=== PATIENT | female | born 1935 | race Caucasian/White ===

== ENCOUNTER 2017-04-21 12:39 | Emergency (ER) | payer MEDICARE, OTHER ==
[2017-04-21 13:11] VITALS: BP 128/58
[2017-04-21] MEDS ORDERED: Albuterol 2.5 MG/3 ML NEB.SOL* (0.083%) INH ONE (13:34)
[2017-04-21] MEDS ORDERED: Ipratropium 0.5MG/2.5ML NEB* 0.5 MG/2.5 ML NEB.SOLN INH ONE (13:34)
--- NOTE | 2017-04-21 13:34 | UC ---
Respiratory Complaint HPI - HPI Summary HPI Summary: 81 YO FEMALE WITH WHEEZING/COUGH AND AGUILAR X 4-5 DAYS PRODUCTIVE COUGH HAS FELT FEVERISH AND HAD CHILLS NO CP NO N/V - History of Current Complaint Chief Complaint: UCRespiratory Stated Complaint: RESP COMPLAINT Time Seen by Provider: 04/21/17 12:59 Hx Obtained From: Patient Onset/Duration: Sudden Onset, Lasting Days Timing: Constant Severity Initially: Mild Severity Currently: Moderate Pain Intensity: 0 Pain Scale Used: 0-10 Numeric Character: Cough: Productive Aggravating Factors: Exertion Alleviating Factors: Nothing Associated Signs And Symptoms: Positive: Dyspnea, Fever - mark, Chills, Wheezing - Allergies/Home Medications Allergies/Adverse Reactions: Allergies Allergy/AdvReac Type Severity Reaction Status Date / Time No Known Allergies Allergy Verified 04/21/17 12:52 Home Medications: Home Medications Acetaminophen [Acetaminophen Extra Stren] 1 tab PO Q6HR PRN 04/21/17 [History Confirmed 04/21/17] Aspirin [Aspirin 81 MG TAB] 1 tab PO DAILY 04/21/17 [History Confirmed 04/21/17] Atenolol [Tenormin 25 MG] 50 mg PO DAILY 04/21/17 [History Confirmed 04/21/17] Atorvastatin* [Lipitor 40 MG*] 1 tab PO DAILY 04/21/17 [History Confirmed ] Calcitriol [Rocaltrol] 1 tab PO DAILY 04/21/17 [History Confirmed 04/21/17] Febuxostat(NF) [Uloric(NF)] 1 tab PO DAILY 04/21/17 [History Confirmed 04/21/17] Olmesartan Medoxomil [Benicar] 1 tab PO DAILY 04/21/17 [History Confirmed ] Omeprazole 20 mg PO DAILY 04/21/17 [History Confirmed 04/21/17] PMH/Surg Hx/FS Hx/Imm Hx Cardiovascular History: Cardiac Disease, Hypertension Respiratory History: Asthma, Bronchitis, Pneumonia - Surgical History Surgical History: Yes Surgery Procedure, Year, and Place: Hysterectomy; CABG - Family History Known Family History: Positive: Cardiac Disease, Hypertension - Social History Alcohol Use: Rare Substance Use Type: None Smoking Status (MU): Never Smoked Tobacco Review of Systems Constitutional: Fever, Chills, Fatigue Skin: Negative Eyes: Negative ENT: Negative Respiratory: Shortness Of Breath, Cough Cardiovascular: Negative Gastrointestinal: Negative Genitourinary: Negative Motor: Negative Neurovascular: Negative Musculoskeletal: Negative Neurological: Negative Psychological: Negative All Other Systems Reviewed And Are Negative: Yes Physical Exam Triage Information Reviewed: Yes Appearance: Well-Appearing, No Pain Distress, Well-Nourished Vital Signs: Initial Vital Signs Temp 98.7 F 04/21/17 12:47 Pulse 95 04/21/17 12:47 Resp 22 04/21/17 12:47 Pulse Ox 94 04/21/17 12:47 Eyes: Positive: Conjunctiva Clear ENT: Positive: Hearing grossly normal. Negative: Nasal congestion, Nasal drainage, Trismus, Muffled/hoarse voice Neck: Positive: Supple, Nontender Respiratory: Positive: No respiratory distress, No accessory muscle use, Wheezing Cardiovascular: Positive: RRR. Negative: No Murmur Musculoskeletal: Positive: ROM Intact Neurological: Positive: Alert Psychological Exam: Normal Skin Exam: Normal UC Diagnostic Evaluation - Laboratory O2 Sat by Pulse Oximetry: 94 - low normal Re-Evaluation - Re-Evaluation First Eval Re-Evaluation Time: 14:20 Change: Improved - feels improved after neb, better air movement and decreased wheezing Respiratory Course/Dx - Differential Dx/Diagnosis Provider Diagnoses: acute bronchitis with bronchitis Discharge - Discharge Plan Condition: Stable Disposition: HOME Prescriptions: Amoxicillin (*) [Amoxicillin 875 MG (*)] 875 mg PO BID #20 tab Patient Education Materials: Acute Bronchitis (ED), Bronchospasm (ED) Referrals: Dilan Hernández MD [Primary Care Provider] - 2 Days Additional Instructions: recheck in 2-3 day if not not better to er for new or worsening symptoms
--- NOTE | 2017-04-21 13:49 | RAD ---
HISTORY: Reason, wheezing, dyspnea COMPARISONS: April 29, 2011 VIEWS: 2: Frontal dual-energy and lateral views of the chest. FINDINGS: CARDIOMEDIASTINAL SILHOUETTE: The cardiomediastinal silhouette is normal. FEDERICO: The federico are normal. PLEURA: The costophrenic angles are sharp. No pleural abnormalities are noted. LUNG PARENCHYMA: There is mild diffuse pattern of reticular opacification. This is chronic appearing. ABDOMEN: The upper abdomen is clear. There is no subphrenic gas. BONES AND SOFT TISSUES: The patient is status post median sternotomy. OTHER: None. IMPRESSION: MILD CHRONIC INTERSTITIAL CHANGES.
[2017-04-21] MEDS ORDERED: Albuterol HFA INHALER* 8 gm MDI INH ONE (14:18)
== END 2017-04-21 14:35 | disposition home or self-care (01) ==
LOC: UCEAST 12:39
DX: J20.9 Acute bronchitis, unspecified (principal); I10 Essential (primary) hypertension; Z95.1 Presence of aortocoronary bypass graft; Z79.82 Long term (current) use of aspirin; J45.909 Unspecified asthma, uncomplicated; I51.9 Heart disease, unspecified
CPT/HCPCS: 71020; 99211; 99212; A9270-GY; G0463; J7644

== ENCOUNTER 2019-06-07 14:06 | Emergency (ER) | payer MEDICARE, OTHER ==
[2019-06-07] MEDS ORDERED: Aspirin 81 mg CHEW TAB* 81 MG TAB.CHEW PO ONE (14:17)
[2019-06-07] MEDS ORDERED: Aspirin 81 mg CHEW TAB* 81 MG TAB.CHEW ONE (14:21)
[2019-06-07 14:24] VITALS: BP 136/54
--- NOTE | 2019-06-07 14:27 | UC ---
General HPI - HPI Summary HPI Summary: Pleasant 83 yo female c/o 2 days shortness of breath. Can't seem to pull in the air enough. Yesterday and this am had chest pressure (not pain, pressure), which is no longer present, but the dyspnea remains. no recent fever / chills / illness. No GI sx reported. No loc / syncope. No focal weakness. Takes baby asa daily,in the evening, most recently last evening. + Hx "heart attack" several years ago,+ hx cardiac bypass surgery apprx 20 yrs ago. No vomit. "Pre-diabetic. Brought to [facility] via a friend. 1st person ros limited d/t dyspnea. No focal weakness. + increased BLE edema. Last po lemonade apprxo 2 hrs ago. - History of Current Complaint Stated Complaint: CHEST PAIN Time Seen by Provider: 06/07/19 14:07 Hx Obtained From: Patient - Allergy/Home Medications Allergies/Adverse Reactions: Allergies Allergy/AdvReac Type Severity Reaction Status Date / Time No Known Allergies Allergy Verified 06/07/19 14:19 Home Medications: Home Medications Rosuvastatin (NF) [Crestor (NF)] 40 mg PO DAILY 06/07/19 [History Confirmed ] PMH/Surg Hx/FS Hx/Imm Hx Previously Healthy: No - see hpi - Surgical History Surgical History: Yes Surgery Procedure, Year, and Place: Hysterectomy; CABG - Family History Known Family History: Positive: Cardiac Disease, Hypertension - Social History Alcohol Use: Rare Substance Use Type: None Smoking Status (MU): Never Smoked Tobacco Review of Systems All Other Systems Reviewed And Are Negative: Yes Constitutional: Positive: Negative Skin: Positive: Negative Eyes: Positive: Negative ENT: Positive: Negative Respiratory: Positive: Other - see hpi Cardiovascular: Positive: Other - see hpi Gastrointestinal: Positive: Negative Genitourinary: Positive: Negative Motor: Positive: Other - see hpi Neurovascular: Positive: Other - see hpi Musculoskeletal: Positive: Edema Neurological: Positive: Negative Psychological: Positive: Negative Is Patient Immunocompromised?: No Physical Exam Triage Information Reviewed: Yes Appearance: Well-Nourished, Ill-Appearing Vital Signs Reviewed: Yes Eye Exam: Normal - grossly nonfocal ENT: Positive: Other - lips a little dry, but skin turgor good Neck exam: Other - + djd evidence. jvd equiv (d/t position) Respiratory Exam: Other - BS equal. Increased rate, dec BL bs Cardiovascular Exam: Other - HR regular, with extra beats + murmur apprx 01/25 Abdominal Exam: Normal Abdomen Description: Positive: Nontender Musculoskeletal Exam: Other Musculoskeletal: Positive: Edema @ - BLE + pitting edema + evidence of venous insuff, lymphedema. Distal warm touch. Neurological Exam: Normal - grossly nonfocal Psychological Exam: Normal - conversing appropriately but dyspneic Skin Exam: Other - nondiaphoretic. no visible or reported rash Course/Dx - Course Course Of Treatment: SR at 73 bpm with pac. Last ekg 2011. EMS notified, understandably disappointed but expresses understanding and agreement. Denies current pain or pressure. Sign sx is dyspnea. O2, Saline lock, asa 342mg. FS glucosse ordered but EMS departing. Will check en route. D/w Dr. Modi apprx 14:20. - Diagnoses Provider Diagnosis: Shortness of breath Discharge - Sign-Out/Discharge Documenting (check all that apply): Patient Departure All imaging exams completed and their final reports reviewed: No Studies - Discharge Plan Condition: Guarded Disposition: ADMITTED TO [facility] Patient Education Materials: Shortness of Breath (ED) Referrals: Yamileth Cabrera MD [Primary Care Provider] - - Billing Disposition and Condition Condition: GUARDED Disposition: Admitted to [facility]
== END 2019-06-07 14:35 | disposition short-term general hospital (02) ==
LOC: UCEAST 14:06
DX: R06.02 Shortness of breath (principal); Z95.1 Presence of aortocoronary bypass graft
CPT/HCPCS: 93005; 99213; A9270-GY; G0463

== ENCOUNTER 2019-06-07 14:57 | Observation (INO) | payer MEDICARE, OTHER ==
--- NOTE | 2019-06-07 15:06 | ED ---
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 She states that she began having some trouble breathing yesterday morning while eating breakfast. At 0300 this morning she was woken up from sleep after feeling a heaviness in her chest with some SOB and she couldn t fall back asleep. She states that the CP has now resolved and rates her current pain severity a 0/10. Symptoms are aggravated by exertion. Symptoms were alleviated by O2 administered in the EMS. She has Hx of Asthma. - History of Current Complaint Hx Obtained From: Patient Onset/Duration: Started Days Ago, Resolved Timing: Intermittent, Lasting Days Initial Severity: Moderate Current Severity: None Pain Scale Used: 0-10 Numeric Chest Pain Location: Diffuse Character: Heaviness Aggravating Factor(s): Exertion Alleviating Factor(s): Oxygen Associated Signs and Symptoms: Positive: Chest Pain, Shortness of Breath - Allergy/Home Medications Allergies/Adverse Reactions: Allergies Allergy/AdvReac Type Severity Reaction Status Date / Time No Known Allergies Allergy Verified 06/07/19 15:06 Home Medications: Home Medications Olmesartan (NF) [Benicar (NF)] 5 mg PO DAILY 06/07/19 [History Confirmed ] PMH/Surg Hx/FS Hx/Imm Hx Endocrine/Hematology History: Reports: Hx Diabetes - Pre-diatbetic Cardiovascular History: Denies: Hx Congestive Heart Failure, Hx Hypertension, Hx Pacemaker/ICD, Other Cardiovascular Problems/Disorders Respiratory History: Reports: Hx Asthma Denies: Hx Chronic Obstructive Pulmonary Disease (COPD), Other Respiratory Problems/Disorders Musculoskeletal History: Denies: Hx Rheumatoid Arthritis, Hx Osteoporosis - Cancer History Hx Chemotherapy: No Hx Radiation Therapy: Yes - Surgical History Surgery Procedure, Year, and Place: Hysterectomy; CABG - Family History Known Family History: Positive: Cardiac Disease, Hypertension - Social History Alcohol Use: Rare Substance Use Type: Reports: None Smoking Status (MU): Never Smoked Tobacco Review of Systems Positive: Chest Pain Positive: Shortness Of Breath All Other Systems Reviewed And Are Negative: Yes Physical Exam - Summary Physical Exam Summary: Appearance: The patient is well-nourished in no acute distress and in no acute pain. Skin: The skin is warm and dry and skin color reflects adequate perfusion. HEENT: The head is normocephalic and atraumatic. The pupils are equal and reactive. The conjunctivae are clear and without drainage. Nares are patent and without drainage. Mouth reveals moist mucous membranes and the throat is without erythema and exudate. The external ears are intact. The ear canals are patent and without drainage. The tympanic membranes are intact. Neck: The neck is supple with full range of motion and non-tender. There are no carotid bruits. There is no neck vein distension. Respiratory: Chest is non-tender. Rales in the bases. Breath sounds are symmetrical and equal. Cardiovascular: Heart is regular rate and rhythm. Systolic ejection murmur. There is mild pitting edema. No pulses are symmetrical and equal. Abdomen: The abdomen is soft and non-tender. There are normal bowel sounds heard in all four quadrants and there is no organomegaly palpated. Musculoskeletal: There is no back tenderness noted. Extremities are non-tender with full range of motion. There is good capillary refill. There is mild pitting edema. No calf tenderness elicited. Neurological: Patient is alert and oriented to person, place and time. The patient has symmetrical motor strength in all four extremities. Cranial nerves are grossly intact. Deep tendon reflexes are symmetrical and equal in all four extremities. Psychiatric: The patient has an appropriate affect and does not exhibit any anxiety or depression. Triage Information Reviewed: Yes Vital Signs Reviewed: Yes Diagnostics - Laboratory Result Diagrams: 06/07/19 15:28 06/07/19 15:21 Lab Statement: Any lab studies that have been ordered have been reviewed, and results considered in the medical decision making process. - Radiology CXR Radiology Interpretation Completed By: Radiologist Summary of Radiographic Findings: IMPRESSION: PULMONARY INTERSTITIAL EDEMA. ED Physician has reviewed this report. - EKG 1501 Cardiac Rate: NL - 76 bpm EKG Rhythm: Sinus Rhythm Summary of EKG Findings: Normal sinus rhythm at 76 bpm, normal ST, no ectopy, no STEMI. Chest Pain Course/Dx - Course Course Of Treatment: Ms. Zapata presented with some shortness of breath with exertion for a couple of days. Last night she woke up with shortness of breath and a crushing chest pain. This resolved gradually after she got up and out of bed. She doesn't have any chest pain on arrival, is nontoxic in appearance and has stable vitals. Her chest x-ray revealed congestive heart failure. Clinically she didn't look bad she didn't have JVD lying at 45 and I only heard crackles at the bases. I spoke with Dr. Skelton the hospitalist about admission. - Diagnoses Provider Diagnoses: CHF (congestive heart failure) - Provider Notifications Discussed Care Of Patient With: Janee Skelton - Dr. Skelton will admit pt to [facility]. Time Discussed With Above Provider: 16:00 Instructed by Provider To: Admit As Inpatient - Critical Care Time Critical Care Time: 30-74 min - 30 minutes Discharge - Sign-Out/Discharge Documenting (check all that apply): Patient Departure - admit Patient Received Moderate/Deep Sedation with Procedure: No - Discharge Plan Condition: Stable Disposition: ADMITTED TO [facility] - Billing Disposition and Condition Condition: STABLE Disposition: Admitted to [facility] - Attestation Statements Document Initiated by Navya: Yes Documenting Scribe: Phong Hill Provider For Whom Sohaile is Documenting (Include Credential): Bryn Modi MD Scribe Attestation: I, Phong Hill, scribed for Bryn Modi MD on 06/07/19 at 2034. Scribe Documentation Reviewed: Yes Provider Attestation: The documentation as recorded by the Phong vivar accurately reflects the service I personally performed and the decisions made by me, Brny Modi MD Status of Scribe Document: Viewed
[2019-06-07 15:35] LABS: ABS Basophils 0.1 10^3/ul (0-0.2); ABS Eosinophils 0.2 10^3/ul (0-0.6); ABS Lymphocytes 1.1 10^3/ul (1.0-4.8); ABS Monocytes 0.8 10^3/ul (0-0.8); ABS Neutrophils 3.5 10^3/ul (1.5-7.7); Eosinophil % 3.3 %; Hematocrit 30 % (35-47); Hemoglobin 9.5 g/dL (12.0-16.0); Lymphocyte % 20.1 %; Mean Corpuscular HGB Conc 32 g/dL (31-36); Mean Corpuscular Hemoglobin 29 pg (27-31); Mean Corpuscular Volume 91 fL (80-97); Mean Platelet Volume 9.4 fL (7.4-10.4); Platelet Count 166 10^3/uL (150-450); Red Blood Count 3.28 10^6 /uL (3.70-4.87); Red Cell Distribution Width 14 % (10-15); White Blood Count 5.7 10^3/uL (3.5-10.8)
[2019-06-07 15:40] LABS: INR 1.04 (0.82-1.09)
[2019-06-07 15:52] LABS: Albumin 3.6 g/dL (3.2-5.2); Albumin/Globulin Ratio 1.2 (1-3); BUN/Creatinine Ratio 18.1 (8-20); C Reactive Protein 1.26 mg/L (<8.01); Calcium 9.4 mg/dL (8.6-10.3); EGFR African American 28.2 (>60); EGFR Non-African American 23.3 (>60); Globulin 3.1 g/dL (2-4); Potassium 4.5 mmol/L (3.5-5.0); Total Bilirubin 0.3 mg/dL (0.2-1.0); Total Protein 6.7 g/dL (6.4-8.9)
[2019-06-07 15:53] LABS: Troponin I 0.02 ng/mL (<0.04)
[2019-06-07] MEDS ORDERED: Furosemide IV* 10 MG/ML 2 ML VIAL (20 MG) IV SLOW PU ONE (17:19)
--- NOTE | 2019-06-07 21:15 | HP ---
CC: Dr. Cabrera; Dr. Melo; Dr. Sewell. HISTORY AND PHYSICAL: DATE OF ADMISSION: 06/07/19 PRIMARY CARE PROVIDER: Dr. Cabrera. FRETTED INSTRUMENT REPAIRER: Dr. Melo. MILLROOM SUPERVISOR: Dr. Sewell. TIME OF EVALUATION: 5 p.m. CHIEF COMPLAINT: Shortness of breath. HISTORY OF PRESENT ILLNESS: Ms. Zapata is an 83-year-old female with a past medical history of c oronary artery disease, status post CABG in 1992; mild-to- moderate aortic valve stenosis; type 2 abhay betes; GERD; gout; breast CA; status post right lumpectomy; CKD stage 3 to 4; hyperlipidemia; hyperte nsion, who presented to the emergency room with complaints of shortness of breath. The patient states that she was on her usual state of health until 3 to 4 days ago. She states that s he was feeling a little short of breath with exertion. Of note is the fact that she has family membe rs visiting from [place], so she has been eating in different restaurants. In fact, she went to [employer] last night. She states that today around 3 in the morning she woke up with severe shortness of breath and had some chest pressure. She denies chest pain and she states that she sat up, she no ticed some wheezing sounds. She went to the bathroom and was playing on her iPad to keep her mind of f the shortness of breath, but her family convinced her to come to the emergency room for further rosalie luation. The patient was seen by Dr. Melo on 05/08/19 and at that point the plan was to repeat her echocard iogram to evaluate her valvular disease and also to have a stress test. At that point, she was alrea dy complaining of dyspnea on exertion and at that point it had been described as a gradual progressiv e issue. She had no complaints of orthopnea or PND on that visit. A week later, she saw Dr. Sewell and she had submitted a 24-hour urine collection with only 600 mL an d her creatinine had increased to 3, so he advised her to drink up to 64 ounces of fluid a day. Her family has been insisting for her to keep up with the fluid intake and she states that she has drunk more than 40 ounces every day, although she was not able to reach Dr. Sewell's recommendation. She denies fever, chills. She has developed some dry cough, especially in the morning. She states t hat her usual weight is 169 pounds. On her visit to Dr. Melo, her weight was 159 without shoes an d on Dr. Sewell's visit her weight was 163 pounds. She does not check her weight regularly at home. The patient denies using any antiinflammatories. She only takes Tylenol for pain and has not taken a ny recently. PAST MEDICAL HISTORY: 1. Coronary artery disease, status post CABG in 1992. 2. [id number] aortic valve stenosis. 3. Type 2 diabetes, now just diet controlled 4. GERD. 5. History of breast CA, status post right lumpectomy in 2004. 6. Shoulder arthritis. 7. Status post cataract surgery. 8. CKD stage 3 to 4. 9. Hyperlipidemia. 10. Hypertension. 11. Diverticulosis . PAST SURGICAL HISTORY: 1. Status post CABG in 1992. 2. Status post right breast lumpectomy in 2004. 3. Status post hysterectomy secondary to endometriosis. 4. Status post left knee arthroscopy due to torn meniscus. MEDICATION LIST: 1. Aspirin 81 mg p.o. daily. 2. Crestor 40 mg p.o. daily. 3. Olmesartan 5 mg p.o. daily. 4. Uloric 40 mg p.o. Mondays, Wednesdays, Fridays 5. Calcitriol 0.25 mcg p.o. daily. 6. Atenolol 50 mg p.o. daily. ALLERGIES: No known drug allergies. SOCIAL HISTORY: No history of tobacco or drug use. She rarely drinks something alcoholic. 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 Surrogate decision maker is her daughter, Harper Mann, phone number is [phone]. REVIEW OF SYSTEMS: A 14-point review of systems was performed, and all the pertinent negative and po sitive findings are in the HPI. PHYSICAL EXAMINATION GENERAL: The patient is a pleasant elderly lady sitting up in the ED stretcher, in no acute distress , but the head of the bed is quite elevated. VITAL SIGNS: Temperature 98.4, heart rate is 78, respiratory rate is 26, oxygen saturation 96% on ro om air, blood pressure is 148/66. HEENT: Pupils are equal. Moist Mucous membranes. NECK: Her neck is obese and I cannot visualize JVD. CHEST: Breath sounds bilaterally with bibasilar crackles. No wheezing. CVS: Normal S1, S2. Regular rate and rhythm with systolic ejection murmur. ABDOMEN: Obese, soft. Bowel sounds present. EXTREMITIES: The patient has 2+ bilateral lower extremity pitting edema. NEUROLOGIC: She is alert and oriented x3. She is moving all 4 extremities. DIAGNOSTIC STUDIES/LAB DATA: The patient had a CBC that showed a WBC of 5.7, hemoglobin of 9.5, hem atocrit of 30, platelets of 166 with 61% neutrophils. INR is 1.04. Chemistry showed a sodium of 134 , potassium of 4.5, chloride of 106, bicarb of 21, BUN of 37, creatinine of 2.04, glucose of 116, lac tic acid is 1, calcium 9.4. LFTs are normal. Initial troponin 0.02. BNP is 640. Chest x-ray shows pulmonary interstitial edema EKG done on 06/07/19 at 2:13 p.m. shows sinus rhythm at 73 beats per minute with some APCs. There is some ST depressions in V2 and V3. Her EKG was repeated at 3:[address] depressions appeared to be improved. Her last EKG on our system was in 2010 and at that time ST depressions were not pre sent. ASSESSMENT AND PLAN: Ms. Zapata is an 83-year-old female with a past medical history of coronary artery disease, status post coronary artery bypass graft in 1992; hypertension; hyperlipidemia; diet controlled type 2 diabetes; gout; chronic kidney disease stage 3 to 4, who presented to the emergenc y room with complaints of progressive dyspnea on exertion, paroxysmal nocturnal dyspnea and chest pre ssure. 1. Newly diagnosed congestive heart failure. I believe this is in the setting of increased salt and fluid intake due to family visitors and Dr. Sewell's recommendation to increase her fluid intake. The patient will be admitted as observation to the telemetry floor. With her history of aortic stenosis , I am going to give her 20 mg of Lasix and we will monitor her I's and O's and daily weights. She w ill have an echocardiogram, so we can assess her LV function and the degree of her aortic stenosis. 2. Chest pressure, rule out acute coronary syndrome. Dr. Melo was already planning to do a stress test as outpatient. At this point, we are going to the diurese her and optimize and depending on ho w she responds, we may perform the stress test Sunday. We will check serial troponins. We will mariela nue her aspirin, beta abbi. 3. Type 2 diabetes. The patient is just being controlled by diet at this point. Her glucose was 116 in the emergency room. 4. Chronic kidney disease stage 3 to 4. With her increased fluid intake, her creatinine has improve d back down to her baseline of 2.0, but we discussed that at this point her heart is not able to tole rate that amount of salt and fluid. She will be diuresed carefully and we will monitor her renal fun ction. 5. DVT prophylaxis: The patient has a score of 6 on the DVT prophylaxis assessment guide. She will be started on subcutaneous heparin. SCDs are contraindicated in the setting of congestive heart regina lure exacerbation with lower extremity edema. 6. Code status is full. TIME SPENT: Approximately 60 minutes spent with patient and family interview, medical records review , physical examination to admission, more than half of this time was spent [id number] with the bhargavi ent and coordination of care. [id number]/[facility] #: [id number]
[2019-06-07] MEDS: Heparin VIAL(*) 5000 UNITS/ML VIAL (FIVE THOUSAND) SUBCUT SCH (21:16)
[2019-06-08] MEDS: Heparin VIAL(*) 5000 UNITS/ML VIAL (FIVE THOUSAND) SUBCUT SCH ×2 (05:04→12:35)
[2019-06-08] MEDS ORDERED: Calcitriol CAP* 0.25 MCG PO SCH (09:00)
[2019-06-08] MEDS ORDERED: CMC:Rosuvastatin (NF) 20 MG TAB PO SCH (09:00)
[2019-06-08] MEDS ORDERED: Aspirin EC TAB* 81 MG TAB.EC PO SCH (09:00)
[2019-06-08] MEDS ORDERED: Atenolol TAB* 50 MG PO SCH (09:00)
[2019-06-08] MEDS ORDERED: Valsartan TAB* 40 MG PO SCH (09:00)
[2019-06-08] MEDS ORDERED: Furosemide IV* 10 MG/ML 2 ML VIAL (20 MG) IV SLOW PU ONE (09:35)
--- NOTE | 2019-06-08 09:38 | PN ---
Subjective Date of Service: 06/08/19 Objective Active Medications: Aspirin (Aspirin Ec Tab*) 81 mg PO DAILY [facility] Last Admin: 06/08/19 08:27 Dose: 81 mg Atenolol (Tenormin Tab*) 50 mg PO DAILY [facility] Last Admin: 06/08/19 08:29 Dose: 50 mg Calcitriol (Rocaltrol Cap*) 0.25 mcg PO DAILY [facility] Last Admin: 06/08/19 08:27 Dose: 0.25 mcg Febuxostat (Uloric(Nf)) 40 mg PO MoWeFr@1700 [facility] Furosemide (Lasix Iv*) 20 mg IV SLOW PU ONCE ONE Stop: 06/08/19 09:36 Heparin Sodium (Porcine) (Heparin Vial(*)) 5,000 units SUBCUT Q8HR [facility] Last Admin: 06/08/19 05:04 Dose: 5,000 units Rosuvastatin Calcium (Crestor (Nf)) 40 mg PO DAILY [facility] Last Admin: 06/08/19 08:28 Dose: 40 mg Valsartan (Diovan Tab*) 40 mg PO DAILY [facility]; Protocol Last Admin: 06/08/19 08:27 Dose: 40 mg Vital Signs - 8 hr 06/08/19 06/08/19 06/08/19 03:15 08:00 08:06 Temperature 98.3 F 97.7 F Pulse Rate 66 65 Respiratory 16 16 15 Rate Blood Pressure 118/57 118/48 (mmHg) O2 Sat by Pulse 97 96 Oximetry Oxygen Devices in Use Now: None Result Diagrams: 06/07/19 15:28 06/07/19 15:21 Assess/Plan/Problems-Billing Assessment:
[2019-06-08 10:45] LABS: BUN/Creatinine Ratio 18.7 (8-20); Calcium 9.7 mg/dL (8.6-10.3); EGFR African American 26.7 (>60); EGFR Non-African American 22.1 (>60); Potassium 4.6 mmol/L (3.5-5.0)
--- NOTE | 2019-06-08 11:03 | ECHO ---
*[facility]* [place] [address] Fax #: [phone] Transthoracic Echocardiogram Patient: Maisha Zapata : 1935 Study Date: 06/08/2019 Age: 83 Gender: F HR: 76 bpm Height: 61 in /154.9 cm BSA: 1.76 m^2 Weight: 168.6 lb /76.7 kg BMI: 31.9 kg/m^2 *[employer] Tech: * Danette De León RDCS *Referring Physician: * Janee NevarezReading Physician: * Shanel Melo MD Indications: Congestive Heart Failure. History: Coronary artery disease. Aortic stenosis. Functional status: Renal failure. Risk factors: Hypertension. Diabetes mellitus. Dyslipidemia. Breast Cancer, s/p right mastectomy. Labs, prior tests, procedures, and surgery: Coronary artery bypass grafting. Conclusions Summary: - Left ventricle: There is mild concentric hypertrophy. Systolic function is normal. The estimated ejection fraction is 60-65%. Features are consistent with a pseudonormal left ventricular filling pattern, with concomitant abnormal relaxation and increased filling pressure (grade 2 diastolic dysfunction). Doppler parameters are consistent with elevated ventricular end-diastolic filling pressure. - Right ventricle: Systolic function is normal. - Left atrium: The atrium is severely dilated. - Mitral valve: The Mitral valve annulus appears moderate to severely calcified. The leaflets are moderately thickened. The findings are consistent with mild stenosis. There is moderate regurgitation. The mean diastolic gradient is 5.0 mm Hg. The valve area is 1.7 cm^2. - Aortic valve: The findings are consistent with moderate stenosis. There is mild to moderate regurgitation. The peak systolic velocity is 3.2 m/sec. The mean systolic gradient is 22.0 mm Hg. The valve area by the velocity-time integral method is 1.06 cm^2. The regurgitation pressure half-time is 431 ms. - Tricuspid valve: There is mild regurgitation. Estimated pulmonary artery pressure is 38 mm Hg. - Pulmonary arteries: Systolic pressure is mildly to moderately increased. - Prior echocardiogram not available to compare. Study data: Transthoracic echocardiogram. Procedure: Transthoracic echocardiography was performed. Image quality was fair. Complete 2D, spectral Doppler, and color flow Doppler. Location: Bedside. Patient status: Inpatient. Patient room number: 441-2. Rhythm: Normal sinus rhythm with PAC's. Findings Left ventricle: The cavity size is normal. There is mild concentric hypertrophy. Systolic function is normal. The estimated ejection fraction is 60-65%. Wall motion is normal; there are no regional wall motion abnormalities. Features are consistent with a pseudonormal left ventricular filling pattern, with concomitant abnormal relaxation and increased filling pressure (grade 2 diastolic dysfunction). Doppler parameters are consistent with elevated ventricular end-diastolic filling pressure. Right ventricle: The cavity size is mildly to moderately dilated. Systolic function is normal. Systolic pressure is mildly to moderately increased. Ventricular septum: There is septal flattening of the interventricular septum consistent with RV volume or pressure overload. Left atrium: The atrium is severely dilated. Right atrium: The atrium is mildly dilated. Mitral valve: The Mitral valve annulus appears moderate to severely calcified. The leaflets are moderately thickened. The findings are consistent with mild stenosis. There is moderate regurgitation. Aortic valve: The valve is trileaflet. The leaflets are moderately thickened and moderately calcified. Cusp separation is moderately reduced. Valve mobility is restricted, NCC immobile, right coronary cusp and LCC decreased mobility. The findings are consistent with moderate stenosis. There is mild to moderate regurgitation. Tricuspid valve: The leaflets are normal thickness. There is no evidence of stenosis. There is mild regurgitation. Pulmonic valve: The leaflets are normal thickness. There is no evidence of stenosis. There is trace regurgitation. Aorta: Ascending aorta: The ascending aorta is appears normal. The aortic root appears normal. The aortic arch appears normal. Pericardium: A prominent pericardial fat pad is present. There is no significant pericardial effusion. Pulmonary arteries: The main pulmonary artery is normal-sized. Systolic pressure is mildly to moderately increased. Systemic veins: Inferior vena cava: The vessel is normal in size. There is (>= 50%) respiratory change in the IVC dimension. Measurements Left ventricle Value Ref Aortic valve continued Value Ref SAMPSON, LAX 4.8 cm 3.8 - 5.2 Peak grad, S 41.0 mm Hg ----- ESD, LAX (H) 3.8 cm 2.2 - 3.5 LVOT/AV, VTI ratio 0.34 ----- FS, LAX (L) 22 % 27 - 45 FRANCES, VTI 1.06 cm^2 ----- PW, ED, LAX (H) 1.1 cm 0.6 - 0.9 FRANCES, Vmax 1.13 cm^2 ----- FS (L) 22 % 27 - 45 AR peak v 3.02 m/sec ----- PW, ED (H) 1.1 cm 0.6 - 0.9 AR PHT 431 ms ----- E', lat chirag, TDI (L) 5.1 cm/sec >=10.0 AR peak grad 36 mm Hg - ---- E/e', lat chirag, 43 TDI Mitral valve Value Ref E', med chirag, TDI (L) 4.4 cm/sec >=7.0 Peak E 2.2 m/sec - ---- E/e', med chirag, 50 Peak A 0.6 m/sec ---- - TDI Decel time 208 ms ----- E', avg, TDI 4.8 cm/sec PHT 185 ms ---- - E/e', avg, TDI (H) 46 <=14 Mean grad, D 5.0 mm Hg - ---- Peak grad, D 19.4 mm Hg ----- LVOT Value Ref Peak E/A ratio 3.69 ----- Diam, S 2.00 cm MVA, PHT 1.2 cm^2 ----- Area 3.1 cm^2 MVA, LVOT cont 1.7 cm^2 ----- Peak jose, S 1.15 m/sec MR alias velocity 0.37 m/sec ----- VTI, S 27.0 cm MR PISA radius 0.5 cm ----- Peak grad, S 5 mm Hg Max MR v 5.59 m/sec ----- Mean grad, S 2 mm Hg Regurg VTI 177.0 cm ----- SV 86 ml ERO, PISA 0.1 cm^2 ----- SV/bsa 49 ml/m^2 MR vol, PISA 17 ml ----- MR fraction, PISA 17 % ----- Ventricular septum Value Ref IVS, ED (H) 1.1 cm 0.6 - 0.9 Pulmonic valve Value Ref Peak v, S 1.24 m/sec ----- Right ventricle Value Ref Peak grad, S 6.0 mm Hg ----- SAMPSON, LAX 3.6 cm SAMPSON minor ax, A4C (H) 5.1 cm 1.9 - 3.5 Tricuspid valve Value Ref mid TR peak v (H) 3.1 m/sec <=2.8 Pressure, S 41 mm Hg Peak RV-RA grad, S 38 mm Hg ----- Left atrium Value Ref Aortic root Value Ref AP dim, ES (H) 4.90 cm 2.70 - Root diam 2.9 cm <4.0 3.80 ML dim, A4C 4.9 cm Ascending aorta Value Ref SI dim, A4C 6.5 cm AAo AP diam, S 3.2 cm ----- Vol/bsa, ES, 1-p (H) 55 ml/m^2 11 - 40 A4C Decending aorta Value Ref Vol/bsa, ES, A/L (H) 81 ml/m^2 16 - 34 Ebony peak jose 0.82 m/sec ----- Right atrium Value Ref Pulmonary artery Value Ref SI dim, ES 5.3 cm 3.4 - 5.3 Pressure, S 35.0 mm Hg ----- ML dim, ES, A4C 3.9 cm 2.6 - 4.4 SI dim, ES, A4C 5.3 cm 3.4 - 5.3 Inferior vena cava Value Ref Estimated RAP 3 mm Hg Diam 2.1 cm ----- Aortic valve Value Ref Chirag diam, ED 2.1 cm Peak v, S 3.2 m/sec VTI, S 80.0 cm Mean grad, S 22.0 mm Hg Legend: (L) and (H) desire values outside specified reference range. Prepared and electronically signed by Shanel Melo MD 06/08/2019 11:02
[2019-06-08 12:47] VITALS: BP 107/45
--- NOTE | 2019-06-08 13:25 | CONS ---
CC: Dr. Janee Almonte; Dr. Jean Sewell; Dr. Yamileth Cabrera CARDIOLOGY CONSULTATION REPORT: DATE OF CONSULT: 06/08/19 REASON FOR CONSULT: Congestive heart failure and chest pressure. CHIEF COMPLAINT: Shortness of breath and chest pressure. HISTORY OF PRESENT ILLNESS: Mrs. Zapata is an 83-year-old woman who has reestablished care with ca recently with known atherosclerotic heart disease and valvular heart disease as well as renal insufficiency. The patient was in her usual state of health until the night of admission approximately 48 hours ago. The patient awoke to urinate. She says she has been urinating more frequently recently because Dr. Sewell has been encouraging to drink more fluids. When she went back to bed, she was winded, and when she got in bed and lied down, she developed chest heaviness. She denies exertional chest heaviness and she had had none of these symptoms earlier in the week. By the time I had seen her, she had undergone diuresis and she said she is feeling back to normal, able to walk around the floor without problems. The patient has had guests, her daughter, her kids, and a friend from [place] and they have been eating out and eating saltier food than usual including food the evening of her presentation. PAST MEDICAL HISTORY: 1. Coronary artery disease, CABG 1992. 2. Aortic valve stenosis. 3. Type 2 diabetes. 4. Hypertension. 5. Dyslipidemia. 6. Chronic kidney disease, stage 3/4. 7. Breast cancer, status post lumpectomy in 2004. 8. Diverticulosis. 9. Degenerative arthritis. PAST SURGICAL HISTORY: Includes: 1. Bypass surgery in 1992. 2. Lumpectomy. 3. Hysterectomy (endometriosis). 4. Knee arthroscopy for torn meniscus. MEDICATIONS: Inpatient medication list includes: 1. Aspirin 81 mg a day. 2. Atenolol 50 mg a day. 3. Rocaltrol 0.25 mg a day. 4. Uloric 40 mg a day. 5. Subcutaneous heparin. 6. Crestor 40 mg a day. 7. Diovan 40 mg a day. 8. She has received 20 of Lasix IV push twice. ALLERGIES: No known drug allergies. FAMILY HISTORY: Positive for coronary artery disease with her mother having had a heart attack, her father had a history of diabetes, and she has a sister with pancreatic cancer. SOCIAL HISTORY: The patient is . 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 Lives independently. No history of alcohol or recreational drug abuse. Rare alcoholic beverages. REVIEW OF SYSTEMS: Positive for increased salt use, increased fluid. Negative for recent fevers, chills, sweats. She denied increase in lower extremity edema or abdominal girth. She did not appreciate that her weights were increasing at home. Her home weight is 169 pounds on her home scale. Positive for exertional dyspnea and chest pressure as above. All other review of systems were negative (11-point). PHYSICAL EXAM: On exam, the patient is 5 feet 1 inch, weighs 167 ponds with a BMI of 32. Vitals on admission: Blood pressure 149/120, pulse was 78, afebrile , respiratory rate 20, oxygen saturation 98%. The patient has lost 2 pounds since admission. I's and O's appear incomplete. General Appearance: Short, centripetally overweight older woman, smiling, appears comfortable, lying 40 degrees in bed. HEENT: Pupils are equal and round. Mucous membranes moist. Neck: Without appreciable increased JVP or thyromegaly. Breath sounds diminished and bronchial breath sounds in the basis, normal in the upper lung grimaldo. No wheezing and no rales appreciated. Coronary: S1 easily audible, S2 with 3/6 late peaking systolic murmur heard in the right upper sternal border with radiation, soft systolic murmur heard at the apex. No diastolic murmurs heard. Abdomen: Active bowel sounds. Nontender. No appreciable hepatomegaly. Lower extremities are free of edema and warm. DIAGNOSTIC STUDIES/LAB DATA: Labs: White count 5.7, hematocrit 30 (newly decreased from 2018). INR 1.04. Sodium 139, potassium 4.6, chloride 106, bicarb 27, BUN 40, creatinine 2.14 (best baseline 2019 is 2.04), glucose 148. Normal transaminases. Troponin #1, 0.02; troponin #2, 0.02; troponin #3, 0.01. BNP of 640. INR 1.04. Chest x-ray from 06/07/18 showed pulmonary edema. Echocardiogram from 06/08/19 showed left ventricular hypertrophy with an ejection fraction of 60% to 65%, pseudonormal diastolic filling and evidence of elevated left ventricular end diastolic pressure, moderate mitral insufficiency , mild aortic stenosis, moderate aortic valve stenosis (mean gradient 22 mmHg, aortic valve area 1 cm2, and peak velocity across the aortic valve 3.2 meters per second). Mild elevation in PA pressure at approximately 38 mmHg. IMPRESSION AND PLAN: In summary, Maisha Zapata is an 83-year-old woman who presented with symptoms of congestive heart failure following increased salt and water intake in the setting of chronic renal insufficiency, stage 3/4, as well as valvular heart disease and abnormal diastolic filling. Although Maisha has coronary artery disease, her troponins were normal. I observed she is improving with diuresis. I recommend continuation with medical management. I do not feel she needs additional inpatient testing. I recommend daily weights as an outpatient. She may need p.r.n. Lasix to use at home for dietary indiscretion. For her valvular heart disease, she is at risk for low gradient aortic stenosis with her elevated left ventricular end diastolic pressure. Upon 2-dimensional echo, her valve does not look severe critical. I would like to get either stress echo or dobutamine stress echo as an outpatient to see how her valves are functioning. An exercise echo would be ideal, but I am not sure she can do it with her cane. The patient's anemia is new 2019 and should get evaluated as an outpatient, this could contribute to congestive heart failure as well. It could be dilutional but seems greater than that in my opinion. Outpatient, we should update her lipid panel if not done in 2019 to ensure LDL cholesterol optimal below 70. Optimization of diet and exercise for cardiac health and renal health as an outpatient would help as well. Additional outpatient options would include a referral to [facility] for education and potentially for rehab. Further recommendations could be made as an outpatient basis and we will get her in for a stress test later this month. Thank you for allowing me to assist this nice woman's care. [id number]/[facility] #: [id number] TREE
--- NOTE | 2019-06-08 15:11 | DS ---
CC: Dr. Cabrera; Dr. Melo; Dr. Sewell DISCHARGE SUMMARY: DATE OF ADMISSION: 06/07/19 DATE OF DISCHARGE: 06/08/19 PRIMARY CARE PROVIDER: Dr. Cabrera. SHIPPER/RECEIVER: Dr. Melo. TRANSFORMATION ANALYST: Dr. Sewell. DISCHARGE DIAGNOSES: 1. Acute diastolic congestive heart failure exacerbation. 2. Chest pressure, acute coronary syndrome ruled out. 3. Normochromic normocytic anemia. SECONDARY DIAGNOSES: 1. Coronary artery disease, status post coronary artery bypass graft. 2. Aortic valve stenosis. 3. Type 2 diabetes, diet controlled. 4. Gastroesophageal reflux disease. 5. History of breast carcinoma, status post right lumpectomy. 6. Shoulder arthritis. 7. Chronic kidney disease, stage 3 to 4. 8. Hyperlipidemia. 9. Hypertension. 10. Diverticulosis. HOSPITAL COURSE: Mrs. Zapata is an 83-year-old female with a past medical history as stated above who presented to the emergency room with complaints of progressive dyspnea on exertion, orthopnea, and paroxysmal nocturnal dyspnea. For more details about the presentation, I refer you to her history and physical. The patient had improvement of her symptoms with diuresis with furosemide. Serial troponins were negative and transthoracic echocardiogram showed ejection fraction of 60% to 65% with left atrial severe dilatation, moderate aortic stenosis, and moderate mitral regurgitation. The patient had significant improvement of her symptoms and she was seen in consultation by Dr. Melo. Her recommendation is to discharge the patient home and add furosemide 20 mg on Wednesdays. The patient received CHF education including the need to monitor her weight and if she gained more than [address] Melo's office. She will have a stress test as an outpatient and then Dr. Melo will decide on further management. She was noted to have H and H of 9.5/30 and this is lower than her last H and H in our system a year ago when her H and H were normal. I have requested anemia workup, repeat CBC and BMP to be done on 06/11/19 and the results will be sent to Dr. Cabrera, Dr. Melo, and Dr. Sewell as she will need further anemia workup, especially if she needs to have coronary artery intervention. The patient is medically stable for discharge today to continue her workup as outpatient. PHYSICAL EXAMINATION: Vital Signs: Temperature 98.5, heart rate 67, respiratory rate is 18, oxygen saturation 98% on room air, blood pressure is 107 /45. General: The patient is pleasant, elderly lady, sitting up in bed, in no acute distress. CVS: S1, S2. Regular rate and rhythm with a systolic murmur. Chest: Breath sounds present bilaterally, no added sounds. Abdomen is obese. Bowel sounds present. Extremities: There is [id number] bilateral lower extremity edema. Neuro: She is alert and oriented x3. Able to move all 4 extremities. DIET: Heart healthy, consistent carb diet. ACTIVITIES: As tolerated. DISPOSITION: To home. STATUS WHILE IN THE HOSPITAL: Observation. CONDITION AT THE TIME OF DISCHARGE: Fair. Please keep in mind this is a summarized version of this patient's hospital stay. If you need more information, please feel free to call me at [phone] or please obtain the full medical records. TIME SPENT: Approximately 45 minutes was spent to complete this discharge. [id number]/[facility] #: [id number] MTDD
[2019-06-09] MEDS ORDERED: FEBUXOSTAT 40 MG PO SCH (17:00)
== END 2019-06-08 14:40 | disposition home or self-care (01) ==
LOC: ED 14:57 → MEDTELE 17:20
PROVIDERS: ADMIT Internal Medicine; ATTEND Internal Medicine
DX: I13.0 Hypertensive heart and chronic kidney disease with heart failure and stage 1 through stage 4 chronic kidney disease, or unspecified chronic kidney disease (principal); E11.22 Type 2 diabetes mellitus with diabetic chronic kidney disease; N18.4 Chronic kidney disease, stage 4 (severe); I50.31 Acute diastolic (congestive) heart failure; R07.9 Chest pain, unspecified; I51.7 Cardiomegaly; D64.9 Anemia, unspecified; E78.5 Hyperlipidemia, unspecified; I25.10 Atherosclerotic heart disease of native coronary artery without angina pectoris; Z95.1 Presence of aortocoronary bypass graft; I35.0 Nonrheumatic aortic (valve) stenosis; K21.9 Gastro-esophageal reflux disease without esophagitis; Z85.3 Personal history of malignant neoplasm of breast; M19.019 Primary osteoarthritis, unspecified shoulder; K57.90 Diverticulosis of intestine, part unspecified, without perforation or abscess without bleeding; R06.02 Shortness of breath
CPT/HCPCS: 36415; 71046; 80048; 80053; 83605; 83880; 84484; 85025; 85610; 86140; 93306; 96372; 96374; 96376; 99284; A9270-GY; G0378; J1644; J1940

== ENCOUNTER 2022-08-17 16:54 | Observation (INO) ==
[2022-08-17 18:48] LABS: Hematocrit 22 % (35-47); Hemoglobin 7.1 g/dL (12.0-16.0); Mean Corpuscular HGB Conc 33 g/dL (31-36); Mean Corpuscular Hemoglobin 30 pg (27-31); Mean Corpuscular Volume 93 fL (80-97); Mean Platelet Volume 9.8 fL (7.4-10.4); Platelet Count 219 10^3/uL (150-450); Red Blood Count 2.34 10^6 /uL (3.70-4.87); Red Cell Distribution Width 18 % (10-15); White Blood Count 6.2 10^3/uL (3.5-10.8)
[2022-08-17 19:12] LABS: High Sens Troponin Baseline 12 pg/mL (<15)
[2022-08-17 19:18] LABS: ALT 11 U/L (7-52); Albumin 3.7 g/dL (3.2-5.2); Albumin/Globulin Ratio 1.3 (1-3); Alkaline Phosphatase 50 U/L (35-149); Blood Urea Nitrogen 56 mg/dL (6-24); CO2 Carbon Dioxide 27 mmol/L (22-32); Calcium 8.9 mg/dL (8.6-10.3); Chloride 99 mmol/L (101-111); Globulin 2.9 g/dL (2-4); Glucose 135 mg/dL (70-100); Sodium 133 mmol/L (135-145); Total Protein 6.6 g/dL (6.4-8.9); eGFR CKD-EPI 16.5 (>60)
[2022-08-17 19:26] LABS: Anion Gap 7 mmol/L (2-11)
[2022-08-17 19:43] LABS: Polychromasia 1+; RBC Morphology Normal (Normal)
[2022-08-17 19:44] LABS: ABS Basophils 0.1 10^3/ul (0-0.2); ABS Lymphocytes 0.9 10^3/ul (1.0-4.8); ABS Monocytes 0.7 10^3/ul (0-0.8); ABS Neutrophils 4.5 10^3/ul (1.5-7.7); Eosinophil % 0.7 %; Lymphocyte % 14.9 %; Nucleated Red Blood Cells % 0.1
[2022-08-17] MEDS ORDERED: Pantoprazole VIAL 40 MG VIAL IV ONE (20:00)
[2022-08-17 20:24] LABS: High Sensitivity Troponin 1 Hr 9 pg/mL (<15)
[2022-08-17] MEDS ORDERED: Pantoprazole 80 mg in NS BAG 80 MG/250 ML BAG IV ONE (20:30)
[2022-08-17] MEDS ORDERED: Ondansetron 4 mg VIAL 2 MG/ML 2 ml VIAL IV PRN (20:40)
[2022-08-17 20:53] LABS: Magnesium 4.3 mg/dL (1.9-2.7); Potassium Redraw 3.9 mmol/L (3.5-5.0)
[2022-08-18 07:26] LABS: ABS Basophils 0.1 10^3/ul (0-0.2); ABS Eosinophils 0.1 10^3/ul (0-0.6); ABS Lymphocytes 1.1 10^3/ul (1.0-4.8); ABS Monocytes 0.7 10^3/ul (0-0.8); ABS Neutrophils 4.5 10^3/ul (1.5-7.7); Eosinophil % 1.5 %; Hematocrit 25 % (35-47); Hemoglobin 8.1 g/dL (12.0-16.0); Lymphocyte % 16.9 %; Mean Corpuscular HGB Conc 33 g/dL (31-36); Mean Corpuscular Hemoglobin 31 pg (27-31); Mean Corpuscular Volume 93 fL (80-97); Mean Platelet Volume 9.3 fL (7.4-10.4); Nucleated Red Blood Cells % 0.1; Platelet Count 168 10^3/uL (150-450); Red Blood Count 2.64 10^6 /uL (3.70-4.87); Red Cell Distribution Width 16 % (10-15); White Blood Count 6.5 10^3/uL (3.5-10.8)
[2022-08-18 07:36] LABS: INR 1.45 (0.89-1.11)
[2022-08-18 07:50] LABS: Albumin 3.2 g/dL (3.2-5.2); Calcium 8.5 mg/dL (8.6-10.3); Potassium 3.8 mmol/L (3.5-5.0); Total Bilirubin 0.9 mg/dL (0.2-1.0)
[2022-08-18 07:56] LABS: Albumin/Globulin Ratio 1.3 (1-3); Globulin 2.5 g/dL (2-4); Total Protein 5.7 g/dL (6.4-8.9); eGFR CKD-EPI 15.6 (>60)
[2022-08-18] MEDS: Pantoprazole 80 mg in NS BAG 80 MG/250 ML BAG IV SCH (11:17)
[2022-08-18] MEDS ORDERED: NS 0.9% 250 ml 250 ML IV ONE (11:26)
[2022-08-18] MEDS ORDERED: Midazolam 5 mg/5 ml VIAL 1 mg/ml 5 ml VIAL (5 mg) ONE (15:54)
[2022-08-18] MEDS ORDERED: fentaNYL 100 mcg/2 ml 50 MCG/ML VIAL ONE (15:54)
[2022-08-19] MEDS: Pantoprazole 80 mg in NS BAG 80 MG/250 ML BAG IV SCH ×3 (00:08→08:50)
[2022-08-19 07:15] LABS: ABS Basophils 0.1 10^3/ul (0-0.2); ABS Eosinophils 0.3 10^3/ul (0-0.6); ABS Lymphocytes 1.3 10^3/ul (1.0-4.8); ABS Monocytes 1.2 10^3/ul (0-0.8); ABS Neutrophils 4.9 10^3/ul (1.5-7.7); Eosinophil % 3.3 %; Hematocrit 26 % (35-47); Hemoglobin 8.5 g/dL (12.0-16.0); Lymphocyte % 17.1 %; Mean Corpuscular HGB Conc 33 g/dL (31-36); Mean Corpuscular Hemoglobin 31 pg (27-31); Mean Corpuscular Volume 93 fL (80-97); Mean Platelet Volume 9.1 fL (7.4-10.4); Platelet Count 170 10^3/uL (150-450); Red Blood Count 2.78 10^6 /uL (3.70-4.87); Red Cell Distribution Width 16 % (10-15); White Blood Count 7.7 10^3/uL (3.5-10.8)
[2022-08-19 08:12] LABS: Calcium 8.4 mg/dL (8.6-10.3); eGFR CKD-EPI 14.9 (>60)
[2022-08-19] MEDS ORDERED: NS 0.9% 500 ml BAG 500 ML IV ONE ×2 (08:34)
[2022-08-19] MEDS ORDERED: Aspirin EC 81 mg TAB.EC (enteric coated) PO SCH (09:00)
[2022-08-19 11:32] VITALS: BP 105/65
[2022-08-19 13:37] LABS: Calcium 8.4 mg/dL (8.6-10.3); Potassium 4.1 mmol/L (3.5-5.0); eGFR CKD-EPI 15.2 (>60)
== END 2022-08-19 14:15 | disposition home or self-care (01) ==
LOC: EDHOLD 16:54 → ED 16:54 → SUATTDRO 20:40 → MEDTELE 08-18 00:41
PROVIDERS: ADMIT Student in an Organized Health Care Education/Training Program; ATTEND Internal Medicine